=== PATIENT | female | born 1995 | race Caucasian/White ===

== ENCOUNTER 2020-03-22 00:06 | Emergency (ER) | payer BC ==
[~2020-03-22] VITALS: Ht 147.3 cm; Wt 45.4 kg
--- NOTE | 2020-03-22 00:28 | NUR ---
PT BIBS C/O SHARP CHEST PAIN 07/20 WITH NUMBNESS TO THE L ARM AND L CHEEKBONE S/P GETTING OFF A FLIGHT FROM [place]. PT STATES ONSET WAS 5 HOURS AGO, "I HAD SHORTNESS OF BREATH AT ONE POINT, NO T NOW". TO ER BED 9
--- NOTE | 2020-03-22 00:35 | NUR ---
TECH AT BEDSIDE FOR XRAY
--- NOTE | 2020-03-22 01:00 | NUR ---
Patient discharged to home in stable condition. Written and verbal after care instructions given. Patient verbalizes understanding of instruction.
[2020-03-22 01:15] VITALS: BP 156/103
== END 2020-03-22 01:15 | disposition home or self-care (01) ==
LOC: ER 00:06
DX: F41.9 Anxiety disorder, unspecified (principal); R07.89 Other chest pain
CPT/HCPCS: 71045-TC